=== PATIENT | female | born 1995 | race Caucasian/White ===

== ENCOUNTER 2018-07-24 20:11 | Emergency (ER) | payer MEDICAID ==
[2018-07-24 20:36] VITALS: RESP 16; TEMP 99.7
[2018-07-24] MEDS ORDERED: LIDOCAINE 1% INJ 10MG/ML (20 ML MDV) SQ ONE (21:19)
[2018-07-24] MEDS ORDERED: ACET/COD 300 MG/30 MG STARTER PACK 6 TAB BTL PO STA (22:37)
--- NOTE | 2018-07-24 22:37 | ED ---
Female Urogenital HPI - General Source: patient, RN notes reviewed Limitations: no limitations <Fahad Thurman - Last Filed: 07/25/18 01:14> - General Source: patient Mode of arrival: ambulatory Limitations: no limitations <Donna Santillan P - Last Filed: 07/25/18 03:41> - General Chief complaint: Urogenital Stated complaint: Cyst/Female Time Seen by Provider: 07/24/18 21:03 - History of Present Illness Initial comments: 22-year-old female presents to the emergency department for a chief complaint of cyst. Patient states she has a cyst in the vaginal area that has been there for a few days. States that she took Bactrim for the past 5 days as she had this left over but it is not helping. States she went to urgent care earlier today and incision and drainage was attempted however unsuccessful. She was then r eferred here to the emergency department. Patient states it is very painful when pressure is applied to the area. No fevers or chills. No systemic symptoms. Patient has no other complaints at this time including shortness of breath, chest pain, abdominal pain, nausea or vomiting, headache, or visual changes. (Fahad Thurman) - Related Data Home Medications Medication Instructions Recorded Confirmed Sulfamethox-Tmp 800-160Mg [Bactrim 1 tab PO Q12H 07/24/18 07/24/18 DS 800-160 mg] Allergies Allergy/AdvReac Type Severity Reaction Status Date / Time No Known Allergies Allergy Verified 07/24/18 21:00 Review of Systems ROS Other: All systems not noted in ROS Statement are negative. <Fahad Thurman - Last Filed: 07/25/18 01:14> ROS Other: All systems not noted in ROS Statement are negative. <Donna Santillan P - Last Filed: 07/25/18 03:41> ROS Statement: Those systems with pertinent positive or pertinent negative responses have been documented in the HPI. Past Medical History Past Medical History: No Reported History History of Any Multi-Drug Resistant Organisms: None Reported Past Surgical History: No Surgical Hx Reported Past Psychological History: No Psychological Hx Reported Smoking Status: Never smoker Past Alcohol Use History: Occasional Past Drug Use History: Marijuana <Donna Santillan P - Last Filed: 07/25/18 03:41> General Exam General appearance: alert, in no apparent distress Head exam: Present: atraumatic, normocephalic, normal inspection Eye exam: Present: normal appearance, PERRL, EOMI. Absent: scleral icterus, conjunctival injection, periorbital swelling ENT exam: Present: normal exam, mucous membranes moist Neck exam: Present: normal inspection, full ROM. Absent: tenderness, meningismus, lymphadenopathy Respiratory exam: Present: normal lung sounds bilaterally. Absent: respiratory distress, wheezes, rales, rhonchi, stridor Cardiovascular Exam: Present: regular rate, normal rhythm, normal heart sounds. Absent: systolic murmur, diastolic murmur, rubs, gallop, clicks External exam: Present: erythema, swelling (right sided bartholins cyst). Absent: normal external exam <Fahad Thurman P - Last Filed: 07/25/18 01:14> Limitations: no limitations <Donna Santillan P - Last Filed: 07/25/18 03:41> Course Vital Signs 07/24/18 07/24/18 20:31 22:56 Temperature 99.7 F H Pulse Rate 91 79 Respiratory 16 16 Rate Blood Pressure 138/79 125/75 O2 Sat by Pulse 100 99 Oximetry Procedures - Incision & Drainage Consent Obtained: verbal consent Indication: bartholins Site: vulva/vagina Size (cm): 4 Anesthetic Used: lidocaine 1% Amount (mLs): 4 I&D Cleaning Method: Alcohol Wipe Scalpel Used: #11 I&D Drainage Obtained: Blood Patient Tolerated Procedure: well, no complications <Fahad Thurman P - Last Filed: 07/25/18 01:14> Medical Decision Making <Fahad Thurman P - Last Filed: 07/25/18 01:14> <Donna Santillan P - Last Filed: 07/25/18 03:41> - Medical Decision Making 22-year-old female presents to the emergency department for chief complaint of cyst in the vaginal area. Patient has had these several times before. States that she did go to urgent care and drainage was unsuccessful so presented here. Patient has also been on Bactrim for the past 5 days which she had left over from her last cyst. On exam patient does have a rather large Bartholin's gland cyst about 4 cm x 2 cm of the right Bartholin's gland. I did attempt to incise and drain this however ultimately was unsuccessful. Dr. Santillan spoke with Dr. 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 Clement. They will see her tomorrow in the office to have this incised and drained. (Fahad Thurman) I personally saw and evaluated the patient. Patient does have an obvious Bartholin's gland cyst abscess however to intensive been made to drain this without success. At this time I will plan to discharge patient home with 2 doses of Tylenol 3 for pain management. Patient care was discussed with Dr. Tran who stated that if the patient calls the office tomorrow and let them know that she was seen in the ER that she will be scheduled for an appointment tomorrow. This plan was discussed patient who is agreeable. All questions pertaining care were answered return parameters discussed patient discharged home in stable condition. (Donna Santillan) Disposition <Fahad Thurman P - Last Filed: 07/25/18 01:14> Is patient prescribed a controlled substance at d/c from ED?: No <Donna Santillan - Last Filed: 07/25/18 03:41> Clinical Impression: Bartholin's gland abscess Disposition: HOME SELF-CARE Condition: Stable Instructions (If sedation given, give patient instructions): Abscess (ED) Additional Instructions: Call the office tomorrow and let them know you need to be seen same day, Dr Santillan spoke with Dr Tran who said you would be seen. Referrals: Thor Velazquez Jr, DO [Primary Care Provider] - 1-2 days
[2018-07-24 22:57] VITALS: BP 125/75; PULSE 79
== END 2018-07-24 22:57 | disposition home or self-care (01) ==
LOC: EC 20:11
DX: N75.1 Abscess of Bartholin's gland (principal)
CPT/HCPCS: 99283; 56420; J2001

== ENCOUNTER 2018-07-25 17:35 | Inpatient (IN) | payer MEDICAID ==
[2018-07-25] MEDS ORDERED: ACETAMINOPHEN TAB 500 MG TAB PO PRN (18:03)
[2018-07-25 18:30] VITALS: BMI 25.8
[2018-07-25] MEDS: HYDROcodone/APAP 5-325MG 1 EACH TAB PO PRN (18:33)
[2018-07-25 19:00] LABS: Basophils % (A) 0 %; Eosinophils # (A) 0.1 k/uL (0-0.7); Eosinophils % (A) 1 %; HCT 37.7 % (34.0-46.0); HGB 12.5 gm/dL (11.4-16.0); Lymphocytes # (A) 1.8 k/uL (1.0-4.8); Lymphocytes % (A) 11 %; MCH 32.8 pg (25.0-35.0); MCHC 33.2 g/dL (31.0-37.0); MCV 98.9 fL (80.0-100.0); Monocytes % (A) 6 %; Neutrophils # (A) 12.9 k/uL (1.3-7.7); Neutrophils % (A) 80 %; Platelet Count 229 k/uL (150-450); RBC 3.81 m/uL (3.80-5.40); RDW 12.4 % (11.5-15.5)
--- NOTE | 2018-07-25 19:39 | P.HPOB ---
History of Present Illness H&P Date: 07/25/18 Chief Complaint: Right vulvar pain This is a 22-year-old female 0 who presents with approximately 6 day history of right vulvar pain and possible cyst. She was given Bactrim and has been taking it for about 6 days without any relief. 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 This cyst started the next day. She thought it was a Bartholin's cyst as she has had these in the past. She called her PCP and was started on Bactrim. She states she has had a Bartholin's cyst on the left side about a month or 2 ago. She has had a new partner since I have last seen her for about a year and a half now. She did not have any STD testing but this was performed in the office today. She was seen at [facility] on July 24 and the physician there did try to drain it but nothing came out. This did cause a lot of pain for her. She then went to [facility] emergency room last night and the ER doctor again attempted to drain it but nothing would come out. She states the swelling has increased to almost double the size since she was at [facility] yesterday. It is very tender and difficult to sit. They did give her some Tylenol 3 which has not helped very much. When I saw her in the office today the area was very red and swollen and slightly indurated near the site of previous attempted I&D's. No cystic mass was palpated. She is therefore sent to the hospital for IV antibiotic treatment due to failed outpatient treatment. Gynecologic history: History of Trichomonas in the past. Currently sexually active with the same partner for 1-1/2 years. Obstetrical history: G0. Social history: She is single. 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 Review of Systems Constitutional: Denies chills, Denies fever Cardiovascular: Denies chest pain, Denies shortness of breath Respiratory: Denies cough Gastrointestinal: Denies abdominal pain, Denies diarrhea, Denies nausea, Denies vomiting Genitourinary: Reports pelvic pain (Right groin), Denies abnormal vaginal bleeding, Denies dysuria, Denies vaginal discharge Musculoskeletal: Denies myalgias Integumentary: Denies pruritus, Denies rash Neurological: Denies numbness, Denies weakness Psychiatric: Denies anxiety, Denies depression Past Medical History Past Medical History: No Reported History History of Any Multi-Drug Resistant Organisms: None Reported Past Surgical History: No Surgical Hx Reported Past Psychological History: No Psychological Hx Reported Smoking Status: Former smoker Past Alcohol Use History: Occasional Past Drug Use History: Marijuana - Past Family History Mother Family Medical History: Cancer Father Additional Family Medical History / Comment(s): MS Medications and Allergies Home Medications Medication Instructions Recorded Confirmed Type Sulfamethox-Tmp 800-160Mg [Bactrim 1 tab PO Q12H 07/24/18 07/25/18 History DS 800-160 mg] Acetaminophen-Codeine 300-30mg 2 tab PO Q6H PRN 07/25/18 07/25/18 History [Tylenol w/codeine #3] Allergies Allergy/AdvReac Type Severity Reaction Status Date / Time No Known Allergies Allergy Verified 07/24/18 21:00 Exam Osteopathic Statement: *. No significant issues noted on an osteopathic structural exam other than those noted in the History and Physical/Consult. Vital Signs Temp Pulse Resp BP Pulse Ox 07/25/18 18:05 98.5 F 112 H 16 148/83 100 Intake and Output 07/25/18 07/25/18 07/25/18 06:59 14:59 22:59 Other: Weight 72.575 kg Gen.: Well-developed well-nourished female in mild distress due to pain HEENT: Within normal limits Heart: Regular rate and rhythm Lungs: Clear to auscultation bilaterally Extremities: Negative Homans - OBG Physical Exam Abdomen: Abdomen is nontender Vulva: Right vulva is very swollen and red, tender to touch, slightly indurated on the lower edge near where the previous I&D site was. No drainage is noted. Vagina: discharge (Scant white) Cervix: no lesion, discharge (Scant white), no friable Results Result Diagrams: 07/25/18 18:48 Abnormal Lab Results - Last 24 Hours (Table) 07/25/18 Range/Units 18:48 WBC 16.0 H (3.8-10.6) k/uL Neutrophils # 12.9 H (1.3-7.7) k/uL Assessment and Plan (1) Vulvar cellulitis Current Visit: Yes Status: Acute Code(s): N76.2 - ACUTE VULVITIS SNOMED Code(s): 504780038 Plan: Will admit for observation and IV antibiotics. Will switch to [place] to see if this helps better with her pain. Ice packs as needed to the groin. Consultation with infectious disease for antibiotic choice both inpatient and for discharge. Will repeat CBC in a.m. White count currently elevated at 16,000.
[2018-07-25] MEDS ORDERED: ONDANSETRON 4 MG/2 ML VIAL IVP PRN (20:33)
[2018-07-25] MEDS: MORPHINE SULFATE 2 MG/ML SYRINGE IVP PRN (21:37)
[2018-07-26] MEDS: MORPHINE SULFATE 2 MG/ML SYRINGE IVP PRN ×5 (01:32→22:07)
--- NOTE | 2018-07-26 08:41 | P.PN ---
Subjective Progress Note Date: 07/26/18 Principal diagnosis: Right vulvar abscess Patient states she has not felt any better through the night. She did use some morphine for pain through the night. She did spike a temperature to 101.6 this morning. Objective - Vital Signs Vital signs: Vital Signs Temp 101.6 F H 07/26/18 06:02 Pulse 105 H 07/26/18 06:02 Resp 16 07/26/18 06:02 BP 100/64 07/26/18 06:02 Pulse Ox 98 07/26/18 06:02 Intake & Output 07/25/18 07/26/18 07/26/18 18:59 06:59 18:59 Intake Total 400 Balance 400 Weight 72.575 kg Intake: Oral 400 Other: # Voids 1 - Constitutional General appearance: Present: no acute distress - Genitourinary Genitourinary Comment(s): Right vulva is still swollen about the same as yesterday and red. With palpation of the area, there was a small break in the skin between the labia majora and labia minora and pussy yellow-green discharge did come out. Quite copious discharge is noted. Culture is taken. Labia minora is also slightly swollen today but it wasn't yesterday. - Labs CBC & Chem 7: 07/25/18 18:48 Labs: Abnormal Lab Results - Last 24 Hours (Table) 07/25/18 Range/Units 18:48 WBC 16.0 H (3.8-10.6) k/uL Neutrophils # 12.9 H (1.3-7.7) k/uL Assessment and Plan Assessment: Right vulvar abscess (1) Vulvar cellulitis Current Visit: Yes Status: Acute Code(s): N76.2 - ACUTE VULVITIS SNOMED Code(s): 195040705 Plan: Patient was seen along with Daina from infectious disease. Infectious disease will be changing her antibiotic regimen. Will send culture. Patient is advised that she will need to be inpatient until she is at least 24 hours afebrile.
[2018-07-26 08:59] LABS: Basophils # (A) 0.1 k/uL (0-0.2); Basophils % (A) 1 %; Eosinophils # (A) 0.1 k/uL (0-0.7); Eosinophils % (A) 1 %; HCT 38.4 % (34.0-46.0); HGB 12.6 gm/dL (11.4-16.0); Lymphocytes # (A) 1.9 k/uL (1.0-4.8); Lymphocytes % (A) 12 %; MCH 32.3 pg (25.0-35.0); MCHC 32.8 g/dL (31.0-37.0); MCV 98.7 fL (80.0-100.0); Mean Platelet Volume 7.8; Monocytes # (A) 1.1 k/uL (0-1.0); Monocytes % (A) 7 %; Neutrophils # (A) 13.2 k/uL (1.3-7.7); Neutrophils % (A) 79 %; Platelet Count 228 k/uL (150-450); RBC 3.89 m/uL (3.80-5.40); RDW 12.6 % (11.5-15.5); WBC 16.6 k/uL (3.8-10.6)
--- NOTE | 2018-07-26 10:26 | P.CONS ---
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 She started taking Bactrim as she has a history of Bartholin's cyst and this is her usual treatment. She worked 12 hour shift and following that she had increased inflammation, edema and pain to the area and went to urgent care center and they attempted to drain the area but was unsuccessful. Patient was seen the following day by her writing tutor, Dr. Clement, and of vaginal testing was done for STDs. She was then sent into [facility] emergency center and again I&D was attempted but unsuccessful. Patient was started on Kefzol and admitted to the [facility] floor. She has had a temperature max 101.6, heart rate 105, blood pressure 100/64, leukocytosis 16. During evaluation, patient had small break in the skin and possibly yellow-green discharge was noted and culture was obtained. Review of Systems All systems: negative Constitutional: Reports fever, Denies chills, Denies fatigue, Denies lethargy, Denies poor appetite, Denies weight loss Eyes: denies blurred vision, denies pain Ears, nose, mouth and throat: Denies dental pain, Denies headache, Denies nasal congestion, Denies nasal discharge, Denies sore throat, Denies vertigo Cardiovascular: Denies chest pain, Denies dyspnea on exertion, Denies edema, Denies shortness of breath, Denies syncope Respiratory: Denies cough, Denies cough with sputum, Denies dyspnea, Denies excessive sputum, Denies hemoptysis, Denies home oxygen, Denies wheezing Gastrointestinal: Denies abdominal pain, Denies diarrhea, Denies loss of appetite, Denies nausea, Denies vomiting Genitourinary: Denies dysuria, Denies hematuria Musculoskeletal: Denies frequent falls, Denies gait dysfunction, Denies muscle weakness, Denies myalgias Integumentary: Reports darkening of skin, Reports sores, Reports wounds, Denies pruritus, Denies rash Neurological: Denies aphasia, Denies change in mentation, Denies change in speech, Denies gait dysfunction, Denies numbness, Denies weakness Psychiatric: Denies anxiety, Denies depression Endocrine: Denies fatigue, Denies weight change Past Medical History Past Medical History: No Reported History Additional Past Medical History / Comment(s): Bartholin's cysts History of Any Multi-Drug Resistant Organisms: None Reported Past Surgical History: No Surgical Hx Reported Past Psychological History: No Psychological Hx Reported Smoking Status: Former smoker Past Alcohol Use History: Occasional Additional Past Alcohol Use History / Comment(s): The patient smoked briefly. She does use marijuana on a regular basis. Occasional alcohol use. The patient's brother lives with her. There is a dog in the home. 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 Past Drug Use History: Marijuana - Past Family History Mother Family Medical History: Cancer Father Additional Family Medical History / Comment(s): MS Medications and Allergies Home Medications Medication Instructions Recorded Confirmed Type Amoxic-Pot Clav 875-125Mg 1 tab PO Q12HR #14 tablet 07/27/18 Rx [Augmentin 875-125] HYDROcodone/APAP 7.5-325MG [[place] 1 each PO Q6H PRN #18 tab 07/27/18 Rx 7.5-325] Ibuprofen [Motrin] 600 mg PO Q6HR PRN #30 tab 07/27/18 Rx Allergies Allergy/AdvReac Type Severity Reaction Status Date / Time No Known Allergies Allergy Verified 07/25/18 20:15 Physical Exam Vitals: Vital Signs Temp Pulse Resp BP Pulse Ox 07/26/18 06:02 101.6 F H 105 H 16 100/64 98 07/25/18 22:00 100.1 F H 104 H 20 105/71 100 07/25/18 18:05 98.5 F 112 H 16 148/83 100 Intake and Output 07/25/18 07/26/18 07/26/18 22:59 06:59 14:59 Intake Total 400 Balance 400 Intake: Oral 400 Other: # Voids 1 Weight 72.575 kg Gen: This is a 22-year-old female. Patient's resting bed and appears to be comfortable and in no acute distress. HEENT: Head is atraumatic, normocephalic. Pupils equal, round. Sclerae is anicteric. Conjunctiva pink. Mucous members of the mouth are moist. NECK: Supple. No JVD. No lymphadenopathy. No thyromegaly. LUNGS: Clear to auscultation. No wheezes or rhonchi. No intercostal retractions. HEART: Regular rate and rhythm. No murmur. ABDOMEN: Soft. Bowel sounds are present. No masses. No tenderness. : Right vulva has extensive edema, erythema. There is a small break in the skin with pussy yellow green drainage. EXTREMITIES: No pedal edema. No calf tenderness. Dorsalis pedis +2 bilaterally. NEUROLOGICAL: Patient is awake, alert and oriented x3. Cranial nerves 2 through 12 are grossly intact. Results CBC & Chem 7: 07/27/18 08:24 Labs: Abnormal Lab Results - Last 24 Hours (Table) 07/25/18 07/26/18 Range/Units 18:48 08:42 WBC 16.0 H 16.6 H (3.8-10.6) k/uL Neutrophils # 12.9 H 13.2 H (1.3-7.7) k/uL Monocytes # 1.1 H (0-1.0) k/uL Assessment and Plan Plan: This is a 22-year-old female who presents to Hospital with a right vulvar abscess. She is currently draining and wound culture obtained. Antibiotics are so which will be transitioned to Zosyn and vancomycin. Continue supportive care. Further recommendations as patient presses. The above dictated assessment and findings were discussed with Dr. Hale. The impression and plan of care have been directed as dictated. Daina Coy nurse practitioner acting as scribe for Dr. Hale.
[2018-07-26] MEDS: PIPERACILLIN-TAZOBACTAM 3.375 GM in SODIUM CHLORIDE 0.9% 100 ML IVPB SCH ×2 (11:51→20:20)
[2018-07-26] MEDS ORDERED: KETOROLAC 30 MG/ML 1 ML VIAL IVP PRN (15:02)
[2018-07-26] MEDS: HYDROcodone/APAP 5-325MG 1 EACH TAB PO PRN (18:03)
[2018-07-26 22:11] VITALS: RESP 18
--- NOTE | 2018-07-26 22:27 | P.CON ---
Consult Note - . 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 She started taking Bactrim as she has a history of Bartholin's cyst and this is her usual treatment. She worked 12 hour shift and following that she had increased inflammation, edema and pain to the area and went to urgent care center and they attempted to drain the area but was unsuccessful. Patient was seen the following day by her dielectric testing machine operator, Dr. Clement, and of vaginal testing was done for STDs. She was then sent into [facility] emergency center and again I&D was attempted but unsuccessful. Patient was started on Kefzol and admitted to the MedSurg floor. She has had a temperature max 101.6, heart rate 105, blood pressure 100/64, leukocytosis 16. During evaluation, patient had small break in the skin and possibly yellow-green discharge was noted and culture was obtained.Please see the consult note as dictated by GEREMIAS Zuniga Daina Anneliese. This 22 year old has history of prior Bartholdi cyst. Now with pain which has improved with drainage. Zosyn for now while culture is in progress. Pain control with toradol requested also. I agree with the evaluation assessment and plan as dictated by GEREMIAS Zuniga Daina Anneliese.
[2018-07-27] MEDS: PIPERACILLIN-TAZOBACTAM 3.375 GM in SODIUM CHLORIDE 0.9% 100 ML IVPB SCH ×2 (03:55→11:22)
[2018-07-27 05:12] VITALS: BP 103/60; PULSE 65; TEMP 98.2
[2018-07-27] MEDS: MORPHINE SULFATE 2 MG/ML SYRINGE IVP PRN (07:56)
[2018-07-27 08:53] LABS: Basophils % (A) 0 %; Eosinophils # (A) 0.1 k/uL (0-0.7); Eosinophils % (A) 2 %; HCT 38.9 % (34.0-46.0); HGB 12.7 gm/dL (11.4-16.0); Lymphocytes % (A) 24 %; MCHC 32.5 g/dL (31.0-37.0); MCV 98.6 fL (80.0-100.0); Mean Platelet Volume 7.9; Monocytes # (A) 0.5 k/uL (0-1.0); Monocytes % (A) 6 %; Neutrophils # (A) 5.6 k/uL (1.3-7.7); Neutrophils % (A) 67 %; Platelet Count 232 k/uL (150-450); RBC 3.95 m/uL (3.80-5.40); WBC 8.4 k/uL (3.8-10.6)
[2018-07-27] MEDS ORDERED: HYDROcodone/APAP 7.5-325MG 1 EACH TAB PO PRN (08:53)
[2018-07-27] MEDS ORDERED: IBUPROFEN 600 MG TAB PO PRN (08:53)
--- NOTE | 2018-07-27 08:58 | P.PN ---
Subjective Progress Note Date: 07/27/18 Principal diagnosis: Right vulvar abscess Patient states that the swelling is going down. It has stopped draining. She states that the [place] doesn't really help very much for her pain and it wears off after about 2-3 hours. The morphine does help but it may be stronger than s he needs. She is very tearful and wants to go home today if possible. Objective - Vital Signs Vital signs: Vital Signs Temp 98.2 F 07/27/18 05:11 Pulse 65 07/27/18 05:11 Resp 18 07/27/18 05:11 BP 103/60 07/27/18 05:11 Pulse Ox 99 07/27/18 05:11 Intake & Output 07/26/18 07/27/18 07/27/18 18:59 06:59 18:59 Intake Total 470 900 Balance 470 900 Intake: IV 50 ceFAZolin 1,000 mg In 50 Sodium Chloride 0.9% 50 ml @ 100 mls/hr IVPB Q8HR SALMA Rx#:[id number] Intake, IV Titration 100 Amount Piperacillin-Tazobactam 3 100 .375 gm In Sodium Chloride 0.9% 100 ml @ 25 mls/hr IVPB Q8H SALMA Rx#: [id number] Oral 320 900 Other: Voiding Method Toilet # Voids 1 - Constitutional General appearance: Present: no acute distress - Genitourinary Genitourinary Comment(s): Right lobe swelling has decreased and redness is less. There is a small laceration where the drainage occurred yesterday however no active draining is noted today. There is still some induration on the lower part of the vulva. Tenderness is much better than yesterday. - Labs CBC & Chem 7: 07/27/18 08:24 Labs: Abnormal Lab Results - Last 24 Hours (Table) 07/26/18 Range/Units 08:42 WBC 16.6 H (3.8-10.6) k/uL Neutrophils # 13.2 H (1.3-7.7) k/uL Monocytes # 1.1 H (0-1.0) k/uL Microbiology - Last 24 Hours (Table) 07/26/18 08:36 Gram Stain - Preliminary Groin Wound Culture - Preliminary Assessment and Plan Assessment: Right vulvar abscess (1) Vulvar cellulitis Current Visit: Yes Status: Acute Code(s): N76.2 - ACUTE VULVITIS SNOMED Code(s): 653235233 Plan: Will try to alternate between ibuprofen and [place] 7.5/325 to hopefully obtain better pain control. Will await preliminary culture results this morning. I advised the patient that I will be back around lunchtime to see how she is doing and potentially discharge on oral antibiotics later today, pending infectious disease input.
--- NOTE | 2018-07-27 13:14 | P.DS ---
Providers Date of admission: 07/26/18 13:23 Attending physician: Kelly Clement Consults: 07/25/18 17:58 Consult Physician Urgent Consulting Provider: Sang Hale Consult Reason/Comments: R. vulvar cellulitis, failed O.P. treatment Do you want consulting provider notified?: Yes Primary care physician: Thor Velazquez - Discharge Diagnosis(es) (1) Vulvar cellulitis Current Visit: Yes Status: Acute Plan - Discharge Summary Discharge Rx Participant: No New Discharge Prescriptions: New Amoxic-Pot Clav 875-125Mg [Augmentin 875-125] 1 tab PO Q12HR #14 tablet Ibuprofen [Motrin] 600 mg PO Q6HR PRN #30 tab PRN Reason: Mild Pain HYDROcodone/APAP 7.5-325MG [[place] 7.5-325] 1 each PO Q6H PRN #18 tab PRN Reason: Moderate Pain Discontinued Sulfamethox-Tmp 800-160Mg [Bactrim DS 800-160 mg] 1 tab PO Q12H Acetaminophen-Codeine 300-30mg [Tylenol w/codeine #3] 2 tab PO Q6H PRN PRN Reason: Pain Discharge Medication List Amoxic-Pot Clav 875-125Mg [Augmentin 875-125] 1 tab PO Q12HR #14 tablet 07/27/18 [Rx] HYDROcodone/APAP 7.5-325MG [[place] 7.5-325] 1 each PO Q6H PRN #18 tab 07/27/18 [Rx] Ibuprofen [Motrin] 600 mg PO Q6HR PRN #30 tab 07/27/18 [Rx] Follow up Appointment(s)/Referral(s): Kelly Clement DO [Doctor of Osteopathic Medicine] - 07/31/18 Activity/Diet/Wound Care/Special Instructions: Activity as tolerated. Diet as tolerated. No intercourse. Continue warm compresses to labia. Off of work through Monday. Discharge Disposition: HOME SELF-CARE
== END 2018-07-27 13:43 | disposition home or self-care (01) | DRG 759 ==
LOC: 4MS4W 17:51 → OBSVTOIN 07-26 13:23
PROVIDERS: ADMIT Obstetrics & Gynecology; ATTEND Obstetrics & Gynecology
DX: N76.4 Abscess of vulva (principal); N76.2 Acute vulvitis; Z87.891 Personal history of nicotine dependence; Z82.0 Family history of epilepsy and other diseases of the nervous system
CPT/HCPCS: 85025; 87040; 87070; 87205